=== PATIENT | female | born 1935 | race Caucasian/White ===

== ENCOUNTER → 2019-01-22 | Outpatient (CLI) | payer MEDICARE | END | disposition home or self-care (01) | LOC: LABPAT 12:38 | PROVIDERS: ATTEND Orthopaedic Surgery | DX: Z01.812 Encounter for preprocedural laboratory examination (principal) | CPT/HCPCS: 87070 ==

== ENCOUNTER 2019-03-03 10:45 | Day surgery (SDC) | payer MEDICARE ==
--- NOTE | 2019-03-02 09:39 | HP ---
HISTORY AND PHYSICAL REASON FOR ADMISSION: Surgery scheduled for 03/03/2019 Barbara Wadsworth is an 83-year-old patient who was seen with symptomatic left knee osteoarthritis. After having treatment options discussed, she elected to proceed with left total knee arthroplasty. Consent was obtained. Medical clearance was provided by Miri Puente NP and cardiac clearance was provided by Dr. Sewell. PAST MEDICAL HISTORY: Hypertension, depression. PAST SURGICAL HISTORY: ORIF humerus, sinus surgery, cataract surgery. MEDICATIONS: Amlodipine, metoprolol, triazolam, Xanax. ALLERGIES: SULFA, AMOXICILLIN, DOXYCYCLINE, CLINDAMYCIN. SOCIAL HISTORY: She denies tobacco use. PHYSICAL EXAMINATION: Evaluation of the left knee: Range of motion is -3/4-120. Tenderness along medial joint line. Crepitus along the medial patellofemoral compartments with range of motion. Pain with patellofemoral compression. Ligaments are stable. Hip rotation is without pain. Distal neurovascular exam is intact. RADIOGRAPHS: Radiographs of the left knee revealed severe medial moderate patellofemoral compartment osteoarthritis. IMPRESSION: 1. Left knee osteoarthritis. 2. Hypertension. 3. Depression. PLAN: Left total knee arthroplasty. MMODL / IJN: [id number] /
[~2019-03-03 10:45] MED LIST: ACETAMINOPHEN TAB 500 MG TAB PO ONE; DEXAMETHASONE SOD PHOSPHATE 10 MG/ML 1 ML VIAL IV ONE; HYDROmorphone 0.5 MG/0.5 ML SYRINGE IVP PRN; MELOXICAM 7.5 MG TAB PO ONE; MIDAZOLAM 2 MG/2 ML VIAL IV PRN; ONDANSETRON 4 MG/2 ML VIAL IVP ONE; ROPIVACAINE 246.25 MG, EPINEPHrine 0.5 MG, KETOROLAC 30 MG, cloNIDine HCL/PF 80 MCG, WA... MISCELLANE ONE; TRANEXAMIC ACID 1,000 MG in SODIUM CHLORIDE 0.9% 100 ML IVPB ONE
[2019-03-03] MEDS: LACTATED RINGERS 1,000 ML IV SCH (11:46)
[2019-03-03] MEDS ORDERED: LIDOCAINE 1% 20 ML VIAL (10MG/ML) FOR IV START INTRADERMA ONE (11:47)
[2019-03-03] MEDS: MIDAZOLAM 2 MG/2 ML VIAL IVP ONE ×3 (11:58→14:58)
[2019-03-03] MEDS ORDERED: fentaNYL (PF) 50 MCG/ML 2 ML AMP IVP ONE (12:02)
[2019-03-03] MEDS ORDERED: SODIUM CHLORIDE 0.9% 100 ML BAG ONE (12:22)
[2019-03-03] MEDS ORDERED: MIDAZOLAM 2 MG/2 ML VIAL ONE (12:22)
[2019-03-03] MEDS ORDERED: TRANEXAMIC ACID 1,000 MG/10 ML VIAL ONE (12:22)
[2019-03-03] MEDS ORDERED: fentaNYL (PF) 50 MCG/ML 2 ML AMP ONE (12:22)
[2019-03-03] MEDS ORDERED: PROPOFOL 10 MG/ML 20 ML VIAL IV ONE (12:22)
[2019-03-03] MEDS ORDERED: diphenhydrAMINE 50 MG/ML 1 ML VIAL ONE (12:22)
[2019-03-03] MEDS ORDERED: ePHEDrine SULFATE/0.9% NACL/PF 50 MG/5 ML SYRINGE IV ONE (12:22)
[2019-03-03] MEDS ORDERED: ceFAZolin 3,000 MG in SODIUM CHLORIDE 0.9% IRRIGATIO 3,000 ML IRRIGATION ONE (13:01)
[2019-03-03] MEDS ORDERED: ROPIVACAINE 0.2%-NS ON-Q PUMP 1,090 MG, EMPTY PAIN BALL 1 EACH MISCELLANE PRN (13:07)
--- NOTE | 2019-03-03 13:09 | P.ANPRN ---
Procedure Note - Anesthesia - Nerve Block Performed Left Adductor Canal Infusion Time Out Performed: Yes Date of Procedure: 03/03/19 Procedure Start Time: 11:52 Procedure Stop Time: 12:08 Location of Patient Procedure: PreOp Indication: Acute Post-Operative Pain, Requested by Surgeon Specifically requested for management of pain by DrNeo: Kurtis Leonard Sedation Type: Sedate with meaningful contact maintained Preparation: Sterile Prep Position: Supine Catheter Depth at Skin (cm): 10 Catheter: Indwelling Needle Types: Pajunk Needle Gauge: 18 Ultrasound used to visualize needle placement: Yes Ultrasound used to observe medication spread: Yes Injectate: 0.5% Ropivacaine (see comment for volume) (20 cc) Blood Aspirated: No Pain Paresthesia on Injection Noted: No Resistance on Injection: Normal Image Stored and Saved: Yes Events: Uneventful and Well Tolerated
[2019-03-03] MEDS ORDERED: ONDANSETRON 4 MG/2 ML VIAL IVP PRN (14:16)
[2019-03-03] MEDS ORDERED: HYDROcodone/APAP 5-325MG 1 EACH TAB PO PRN (14:16)
[2019-03-03] MEDS ORDERED: NALOXONE 0.4 MG/ML 1 ML VIAL IV PRN (14:16)
[2019-03-03] MEDS ORDERED: HYDROmorphone 0.5 MG/0.5 ML SYRINGE IVP PRN ×3 (14:16)
--- NOTE | 2019-03-03 14:16 | P.OP ---
Date of Procedure: 03/03/19 Preoperative Diagnosis: Left knee osteoarthritis Postoperative Diagnosis: Left knee osteoarthritis Procedure(s) Performed: Left total knee arthroplasty Implants: 1. Microport evolution size 4 left cemented femur 2. Microport evolution size 4 left cemented tibial baseplate 3. Microport evolution size 4 CS 10 mm polyethylene tibial insert 4. Microport advance 32 mm all polyethylene cemented patella Anesthesia: regional (Adductor canal catheter), local, spinal Surgeon: Kurtis Leonard Logistics Planner #1: Jarred Vaughan Estimated Blood Loss (ml): 50 Pathology: other (Bone) Condition: stable Disposition: PACU Indications for Procedure: 83-year-old patient seen with symptomatic left knee osteoarthritis. After treatment options were discussed, she elected to proceed with total knee arthroplasty. Operative Findings: See description of procedure Description of Procedure: Patient was taken to the operative suite after having an adductor canal catheter placed by the department of anesthesia for postoperative pain management. Patient underwent a spinal anesthetic by the department of anesthesia. Patient was given preoperative IV intake antibiotics and TXA. A well-padded tourniquet was placed about the left lower extremity. The lower extremity was then prepped and draped in the normal sterile orthopedic fashion. The extremity was elevated, a tourniquet was insufflated to 300. A standard anterior incision was made sharply through skin. Dissection was taken down through the subcutaneous soft tissues down to the extensor mechanism. A medial arthrotomy was performed, patella was everted and knee was flexed. There was advanced osteoarthritis noted. I introduced my distal intramedullary femoral drill. I then introduced the distal femoral cutting jig. Giorgi SANTOS secured the cutting jig with 2 pins. I held retractors in position while Giorgi SANTOS performed the distal femoral resection through the guide area we now removed her distal femoral cutting guide. We now placed our 4-in-1 femoral cutting block and positioned and it was secured with 2 pins by Giorgi SANTOS while I held the block in position. The distal femoral finishing was now completed. A proximal tibial cutting guide was positioned. I held the guide in the appropriate position with both hands well Giorgi SANTOS inserted stabilizing pins into the guide. Proximal tibial cut was made. We now placed a trial femoral component into position, along with an appropriate size tibial tray and insert. We now took the knee through range of motion and had full extension good flexion and good overall soft tissue balance noted. The patella was everted and stabilized with 2 towel clips held by Giorgi SANTOS while I performed a flush with patellar quad tendon utilizing a fresh sawblade. We templated the patella, appropriate drill holes were made. An appropriate trial patella was positioned, knee was taken through full range of motion with the patella tracking very nicely. The trial patella was removed. Drill holes were made through the femoral component. All trial components were removed after marking off the appropriate rotation of the tibia. Retractors were now positioned along the proximal tibia. An appropriate keel punch was made with the appropriate size tibial guide by myself on Giorgi SANTOS assisted by holding retractors. At this point appropriate size implants were chosen and opened. The joint was irrigated copiously with pulse lavage mechanical irrigation. The posterior capsule was infiltrated with local analgesic. The wound was irrigated with pulse lavage mechanical irrigation. We mixed antibiotic methylmethacrylate. We placed the knee into flexion. We placed multiple retractors assisted by Giorgi SANTOS to expose the proximal tibia. Once the methyl methacrylate was ready, the tibial component was cemented into place removing any excess methylmethacrylate form by both myself and Giorgi SANTOS. The femoral component was cemented into place removing the removing any excess methylmethacrylate performed by both myself and Giorgi SANTOS. We then inserted the appropriate size polyethylene tibial insert. We made sure that it was locked into position. We took the knee into full extension, and then back in a flexion making sure we had removed any excess methylmethacrylate. The patellar component was then cemented down and secured with clamp. Excess methylmethacrylate removed. We kept the knee in full extension, patellar clamp in position until methylmethacrylate had hardened. Once it had hardened the patellar clamp was removed. The knee was taken through full range of motion. The patella tracked nicely. There was good soft tissue balancing. The tourniquet was now released. Additional hemostasis was achieved via electrocautery. A second gram of TXA was given. The wound again was irrigated with pulse lavage mechanical irrigation. The superficial soft tissues were infiltrated local analgesic. The extensor mechanism was repaired with Vicryl. We checked the repair with range of motion and it was stable. The subcutaneous soft tissues were repaired with Vicryl in layers. The skin was approximated with pernio/Dermabond. Sterile dressings were applied followed by loose web roll and Kobe bandage. The patient was transferred to a bed, and taken to recovery in stable and satisfactory condition. Giorgi SANTOS assisted with this complex procedure.
--- NOTE | 2019-03-03 15:01 | XR ---
EXAMINATION TYPE: XR knee limited LT DATE OF EXAM: 03/03/2019 CLINICAL HISTORY: Left knee pain and arthritis status post total knee replacement. TECHNIQUE: Portable AP and crosstable lateral views of the left knee are obtained immediately postop eratively. COMPARISON: None FINDINGS: Metallic hardware from total left knee arthroplasty is seen and appears satisfactory in al ignment and position. There is evidence of recent surgery with diffuse subcutaneous gas and soft tis moisés swelling noted. IMPRESSION: METALLIC HARDWARE FROM TOTAL LEFT KNEE ARTHROPLASTY IS SATISFACTORY IN ALIGNMENT.
[2019-03-03 15:50] LABS: Glucose,Whole Blood 128 mg/dL (75-99)
[2019-03-03] MEDS ORDERED: PROMETHAZINE INJ 25 MG/ML 1 ML VIAL IVPB ONE (16:11)
[2019-03-03 17:18] VITALS: BMI 27.7
[2019-03-03] MEDS ORDERED: FLUTICASONE 50MCG/SPRAY NASAL 16GM EA NOSTRIL PRN (17:22)
[2019-03-03] MEDS ORDERED: FAMOTIDINE 20 MG TAB PO PRN (17:22)
[2019-03-03] MEDS ORDERED: TEMAZEPAM 15 MG CAP PO PRN (17:22)
[2019-03-03] MEDS: ALPRAZolam 0.5 MG TAB PO PRN (20:14)
[2019-03-03] MEDS: HYDROcodone/APAP 5-325MG 1 EACH TAB PO PRN (20:22)
[2019-03-03] MEDS: SODIUM CHLORIDE 0.9% 1,000 ML IV SCH (20:24)
[2019-03-03] MEDS ORDERED: METOPROLOL SUCCINATE (ER) 25 MG TAB.ER.24H PO SCH (21:00)
[2019-03-03] MEDS ORDERED: amLODIPine 5 MG TAB PO SCH (21:00)
[2019-03-03] MEDS ORDERED: SENNOSIDES-DOCUSATE SODIUM 1 EACH TAB PO SCH (21:00)
[2019-03-03] MEDS ORDERED: DOXEPIN 25 MG CAP PO SCH (21:00)
[2019-03-03] MEDS ORDERED: ATORVASTATIN 20 MG TAB PO SCH (21:00)
[2019-03-04] MEDS ORDERED: ENOXAPARIN 30 MG/0.3 ML SYRINGE SQ SCH (03:00)
[2019-03-04] MEDS ORDERED: guaiFENesin-Coden 100-10MG/5ML 10 ML CUP PO PRN (03:32)
[2019-03-04] MEDS ORDERED: guaiFENesin SYRUP 100MG/5ML 200 MG/10 ML CUP PO PRN (04:03)
[2019-03-04] MEDS: HYDROcodone/APAP 5-325MG 1 EACH TAB PO PRN (05:33)
[2019-03-04] MEDS: LACTATED RINGERS 1,000 ML IV SCH (06:13)
[2019-03-04] MEDS: ALPRAZolam 0.5 MG TAB PO PRN (06:20)
[2019-03-04 08:05] VITALS: BP 158/80; PULSE 91; RESP 18; TEMP 97.7
[2019-03-04 08:16] LABS: Basophils % (A) 0 %; Eosinophils % (A) 0 %; HGB 11.1 gm/dL (11.4-16.0); Lymphocytes # (A) 0.7 k/uL (1.0-4.8); Lymphocytes % (A) 4 %; MCH 31.8 pg (25.0-35.0); MCHC 31.8 g/dL (31.0-37.0); Mean Platelet Volume 6.3; Monocytes # (A) 0.7 k/uL (0-1.0); Monocytes % (A) 4 %; Neutrophils # (A) 14.2 k/uL (1.3-7.7); Neutrophils % (A) 90 %; Platelet Count 283 k/uL (150-450); RDW 12.5 % (11.5-15.5); WBC 15.7 k/uL (3.8-10.6)
[2019-03-04] MEDS: SODIUM CHLORIDE 0.9% 1,000 ML IV SCH (08:17)
[2019-03-04] MEDS ORDERED: MELOXICAM 7.5 MG TAB PO SCH (09:00)
[2019-03-04] MEDS ORDERED: ASPIRIN 81 MG PO SCH (09:00)
[2019-03-04] MEDS ORDERED: LORATADINE 10 MG TAB PO SCH (09:00)
--- NOTE | 2019-03-04 09:08 | P.CONS ---
History of Present Illness - Reason for Consult Consult date: 03/04/19 medical mangament Requesting physician: Kurtis Leonard - History of Present Illness This is an 83-year-old female patient presented for an elective left knee arthroplasty with Dr. Leonard. Patient reports she's had ostial arthritis left knee with declining function over the past year patient had try other measures without success. Patient is currently postop day 1 estimated blood loss 50 MLS. Patient does have past medical history of GERD, hypertension, osteoarthritis, left arm fracture, frequent PVCs and cardiac clearance prior to surgery. Patient also reports that she has high anxiety especially in regards to hospitalizations. Today patient is currently resting comfortably in chair. Daughter at bedside. Patient reports that she's had increased cough and congestion throughout the night. Patient denies any nausea vomiting or diarrhea. Patient denies any chest pain. Patient denies shortness of breath. Patient denies any urinary burning or frequency. Patient has been working with physical therapy and anticipating discharge home with home healthcare today. Review of Systems Please refer to HPI otherwise unremarkable Past Medical History Past Medical History: GERD/Reflux, Hypertension, Musculoskeletal Disorder, Osteoarthritis (OA) Additional Past Medical History / Comment(s): Hx lt upper arm fx. Edema BLE occ. Freq PVC's. Tricuspid, Mitral valve regurg per Dr Sewell, hypoglycemia History of Any Multi-Drug Resistant Organisms: None Reported Past Surgical History: Breast Surgery, Orthopedic Surgery Additional Past Surgical History / Comment(s): D&C. Rt breast exc fibrous tumor. Sinus surg. ORIF lt upper arm. Nash Cataracts. Past Anesthesia/Blood Transfusion Reactions: Postoperative Nausea & Vomiting (PONV) Additional Past Anesthesia/Blood Transfusion Reaction / Comm: no hx blood transfusion Past Psychological History: Anxiety Additional Psychological History / Comment(s): very anxious, "phobia regarding hospitals" Smoking Status: Never smoker Past Alcohol Use History: None Reported Past Drug Use History: None Reported - Past Family History Mother Family Medical History: Cancer Medications and Allergies Home Medications Medication Instructions Recorded Confirmed Type ALPRAZolam [Xanax] 0.5 mg PO TID PRN 02/24/19 03/03/19 History Acetaminophen [Tylenol Arthritis] 650 mg PO Q8H PRN 02/24/19 03/03/19 History Aspirin [Adult Low Dose Aspirin EC] 81 mg PO DAILY 02/24/19 03/03/19 History Atorvastatin [Lipitor] 20 mg PO HS 02/24/19 03/03/19 History Doxepin HCl [SINEquan] 75 mg PO HS 02/24/19 03/03/19 History Loratadine [Claritin] 10 mg PO DAILY 02/24/19 03/03/19 History Meloxicam [Mobic] 7.5 mg PO DAILY PRN 02/24/19 03/03/19 History Metoprolol Succinate (ER) [Toprol 25 mg PO HS 02/24/19 03/03/19 History Xl] Mometasone Furoate [Nasonex Nasal 1 - 2 spray EA NOSTRIL DAILY PRN 02/24/19 03/03/19 History Myrtle] Ranitidine HCl [Zantac] 300 mg PO DAILY PRN 02/24/19 03/03/19 History Triazolam [Halcion] 0.25 mg PO HS PRN 02/24/19 03/03/19 History amLODIPine [Norvasc] 5 mg PO HS 02/24/19 03/03/19 History Allergies Allergy/AdvReac Type Severity Reaction Status Date / Time codeine Allergy Vomiting Verified 03/04/19 03:59 Penicillins Allergy Swelling, Verified 02/24/19 12:47 Lumps on skin Sulfa (Sulfonamide Allergy Swelling, Verified 02/24/19 12:47 Antibiotics) Lumps on skin Physical Exam Vitals: Vital Signs Temp Pulse Pulse Pulse Pulse Resp BP 03/04/19 07:00 97.7 F 91 18 158/80 03/04/19 01:52 98.3 F 90 17 118/54 03/03/19 20:08 98.0 F 52 L 18 152/95 03/03/19 16:01 89 18 151/65 03/03/19 15:55 97.5 F L 60 16 124/72 03/03/19 15:46 87 20 160/71 03/03/19 15:30 89 18 149/80 03/03/19 15:15 83 18 159/67 03/03/19 15:00 77 16 144/64 03/03/19 14:45 75 18 152/71 03/03/19 14:25 97.3 F L 85 16 155/73 03/03/19 11:35 97.9 F 104 H 16 159/92 Pulse Ox 03/04/19 07:00 93 L 03/04/19 01:52 93 L 03/03/19 20:08 92 L 03/03/19 16:01 96 03/03/19 15:55 94 L 03/03/19 15:46 97 03/03/19 15:30 97 03/03/19 15:15 97 03/03/19 15:00 98 03/03/19 14:45 97 03/03/19 14:25 93 L 03/03/19 11:35 95 Intake and Output 03/03/19 03/04/19 03/04/19 22:59 06:59 14:59 Intake Total 330 Balance 330 Intake: IV 150 Oral 180 Other: Voiding Method Bedpan Toilet # Voids 0 1 Head normocephalic Neck supple Lungs clear to auscultation bilaterally no wheezing or crackles Heart regular rate and rhythm S1-S2, no rub or gallop Abdomen is soft nontender nondistended positive bowel sounds no hepatosplenomegaly Extremities no edema. right knee Dressing is clean dry and intact Neuro alert and orientated to 3 Results CBC & Chem 7: 03/04/19 06:37 Labs: Abnormal Lab Results - Last 24 Hours (Table) 03/03/19 03/04/19 Range/Units 15:49 06:37 WBC 15.7 H (3.8-10.6) k/uL RBC 3.50 L (3.80-5.40) m/uL Hgb 11.1 L (11.4-16.0) gm/dL Neutrophils # 14.2 H (1.3-7.7) k/uL Lymphocytes # 0.7 L (1.0-4.8) k/uL POC Glucose (mg/dL) 128 H (75-99) mg/dL Assessment and Plan Assessment: 1. Right knee osteoarthritis status post total right knee arthroplasty with Dr. Leonard. Patient is currently postop day 1. Lovenox for DVT prophylaxis per orthopedic services pain meds per orthopedics 2. Increased coughing congestion. Will order chest x-ray to further investigate. Robitussin added 3. Leukocytosis. This could be secondary to Decadron the patient received intraoperative. Patient is having increased congestion will order chest x-ray to rule out pneumonia. UA to rule out UTI 4. History of GERD 5. History of essential hypertension 6. History of left arm fracture 7. History of anxiety in regards hospitalization. Maintained on Xanax DVT prophylaxis Lovenox. GI prophylaxis Pepcid Thank you for this consultation we will follow patient closely throughout stay Anticipate possible discharge home today or tomorrow per orthopedic services Time with Patient: Greater than 30 (Greater than 60% of the total time spent in counseling and coordination of care. I performed an examination of the patient and discussed their management with the Nurse Practitioner. I have reviewed the Nurse Practitioner's notes and agree with the documented findings and plan of care)
[2019-03-04 09:15] LABS: ALT 22 U/L (9-52); AST 18 U/L (14-36); African American GFR (CKD) >90 (>60 ml/min/1.73 sqM); Albumin 3.3 g/dL (3.5-5.0); Alkaline Phosphatase 60 U/L (38-126); Anion Gap 8 mmol/L; Blood Urea Nitrogen 17 mg/dL (7-17); Calcium 8.9 mg/dL (8.4-10.2); Carbon Dioxide 25 mmol/L (22-30); Chloride 107 mmol/L (98-107); Glucose 114 mg/dL (74-99); Sodium 140 mmol/L (137-145); Total Bilirubin 0.3 mg/dL (0.2-1.3); Total Protein 5.6 g/dL (6.3-8.2)
[2019-03-04 10:50] LABS: Appearance,Urine Clear (Clear); Bilirubin,Urine Negative (Negative); Blood,Urine Negative (Negative); Color,Urine Yellow; Glucose,Urine (UA) Negative (Negative); Ketones,Urine Negative (Negative); Leukocyte Esterase,Urine Negative (Negative); Nitrite,Urine Negative (Negative); PH, Urine 5.5 (5.0-8.0); Protein,Urine Negative (Negative); Specific Gravity,Urine 1.021 (1.001-1.035); Urobilinogen,Urine <2.0 mg/dL (<2.0)
--- NOTE | 2019-03-04 11:27 | P.PN ---
Progress Note - Text Anesthesia POD 1657. Patient is status post left TKR under spinal anesthesia with a left adductor canal catheter placed for postoperative pain relief. With ropivacaine 0.2% running at 8 cc's per hour, the patient's VAS is (2, 4). Catheter site is clean dry and intact.
--- NOTE | 2019-03-04 12:58 | XR ---
EXAMINATION TYPE: XR chest 2V DATE OF EXAM: 03/04/2019 COMPARISON: NONE HISTORY: Increasing cough and congestion TECHNIQUE: Frontal and lateral views of the chest are obtained. FINDINGS: There is slight right hemidiaphragm elevation that may be congenital. Cardia mediastinal s ilhouette is upper limits of normal in size. Main pulmonary arteries appear engorged, which could cor relate with pulmonary arterial hypertension. Upper mediastinum is prominent and may be slightly relat ed to patient rotation, chronicity unknown. Diffuse osseous demineralization is present with mild deg enerative changes of the thoracic spine. No focal consolidation, pleural effusion or pneumothorax. IMPRESSION: 1. No acute pulmonary process with no focal consolidation, pleural effusion or pneumothorax. 2. Cardiomediastinal silhouette is prominent as discussed on the dictation of 10/04/2010, however no im ages are available for direct comparison of size of the aorta.
--- NOTE | 2019-03-04 13:10 | P.PN ---
Subjective Progress Note Date: 03/04/19 Principal diagnosis: status post left total knee arthroplasty Patient evaluated at bedside today, she's doing very well. She has multiple family members at bedside. She's ambulate well therapy. Her pain is well- controlled. Objective - Vital Signs Vital signs: Vital Signs Temp 97.7 F 03/04/19 07:00 Pulse 91 03/04/19 07:00 Resp 18 03/04/19 07:00 BP 158/80 03/04/19 07:00 Pulse Ox 93 L 03/04/19 07:00 Intake & Output 03/03/19 03/04/19 03/04/19 18:59 06:59 18:59 Intake Total 1231 Output Total 50 Balance 1181 Intake: IV 1051 Oral 180 Output: Estimated Blood Loss 50 Other: Voiding Method Bedpan Toilet # Voids 1 - Exam Left lower extremity: Incision is clean, dry, and intact. The exofin fusion tape is in good condition. There is minimal soft tissue swelling and ecchymosis surrounding the medial and lateral aspects of the incision. Calf is soft, no tenderness with palpation. Plantar flexion, dorsiflexion, EHL, FHL are intact. Sensory exam to light touch throughout the extremity is intact, dorsal pedis pulses 2+. - Labs CBC & Chem 7: 03/04/19 06:37 03/04/19 06:37 Labs: Abnormal Lab Results - Last 24 Hours (Table) 03/03/19 03/04/19 03/04/19 Range/Units 15:49 06:37 06:37 WBC 15.7 H (3.8-10.6) k/uL RBC 3.50 L (3.80-5.40) m/uL Hgb 11.1 L (11.4-16.0) gm/dL Neutrophils # 14.2 H (1.3-7.7) k/uL Lymphocytes # 0.7 L (1.0-4.8) k/uL Glucose 114 H (74-99) mg/dL POC Glucose (mg/dL) 128 H (75-99) mg/dL Total Protein 5.6 L (6.3-8.2) g/dL Albumin 3.3 L (3.5-5.0) g/dL Assessment and Plan Plan: Assessment: Postoperative day #1 status post left total knee arthroplasty Plan: Pain control, plan for discharge on oral medication GI and DVT prophylaxis, aspirin 81 mg twice a day Wound care instructions discussed Home physical therapy and nursing after discharge Medical recommendations Discharge home today Time with Patient: Less than 30
--- NOTE | 2019-03-04 13:13 | P.DS ---
Providers Date of admission: 03/03/2019 Expected date of discharge: 03/04/19 Attending physician: Kurtis Leonard Consults: 03/03/19 14:16 Consult Physician Routine Consulting Provider: Gwendolyn Bhakta Consult Reason/Comments: Medical management Do you want consulting provider notified?: Yes Primary care physician: Jadyn Chiu [facility] Course: Date of admission: 03/03/2019 Date of discharge: 03/04/2019 Admission diagnosis: Status post left total knee arthroplasty Discharge diagnosis: Same Attending physician: Dr. Leonard Surgical procedures: Left total knee arthroplasty Brief history: Patient is a 83-year-old female with a history of progressive primary left knee osteoarthritis. At this point patient has failed conservative treatment measures and has opted to proceed with a elective left total knee arthroplasty. Hospital course: Details of patient's surgery can be found in operative report. Patient tolerated the procedure well and was subsequently transported to orthopedic floor. Patient's orthopeidc and medical care was provided daily. Patient had daily laboratory tests performed for evaluation of overall blood counts. Patient had daily physical therapy to include strengthening range of motion as well as education with walker ambulation. Patient had daily CPM usage as part of their physical therapy program. Patient was treated with Lovenox for their postoperative DVT prophylaxis during their inpatient stay. Patient was noted to have a relatively uneventful postoperative course. Patient reported satisfactory pain control with oral pain medications by postoperative day 0. Patient showed satisfactory progress with physical therapy. Patient moved steadily through the program and had no difficulty meeting the goals by postop erative day 1. Given patient's otherwise satisfactory course and having met physical therapy goals, plan is to discharge patient home on postoperative day 1. Discharge condition/disposition: Patient will be discharged home in stable condition. Discharge medications: Instructions are given on resumption of patient's normal daily medications per primary care recommendation, in addition patient will be prescribed [place] 5 mg/325 mg, Colace 100 mg. Discharge instructions: 1. Wound care and infection precautions, keep incision dry and covered while showering, no lotions, creams, moisturizers. No soaking, tubs, pools, hottubs. Do not scrub over the incision. 2. Weight-bear as tolerated with walker / cane until follow-up. 3. Ice and elevate when necessary. Do not exceed 20 minutes per hour with ice pack. 4. Utilize compression sleeve until seen at first follow up appointment. 5. Visiting nursing care. 6. Home physical therapy including home CPM]. 7. Pain meds and anticoagulants per prescription. 8. Pain medication has potential to cause constipation. Increase oral fluid and fiber intake. Contact primary care provider if you have not had a bowel movement within 48 hours after discharge 9. No anti-inflammatory medication until discussed at first post operative visit, this including Motrin, Aleve, Mobic, Diclofenac. 10. Follow up in office at 2 weeks postop with Giorgi Vaughan PA-C 11. Follow up with your primary care doctor 7-10 days after discharge. 12. Contact [facility] with any questions, . Procedures: Left total knee arthroplasty Plan - Discharge Summary Discharge Rx Participant: Yes New Discharge Prescriptions: New Aspirin [Adult Low Dose Aspirin EC] 81 mg PO BID #60 tablet. Docusate [Colace] 100 mg PO DAILY #30 capsule Hydrocodone/Acetaminophen [[place] 5-325] 1 - 2 each PO Q6HR PRN #40 tab PRN Reason: Pain No Action Meloxicam [Mobic] 7.5 mg PO DAILY PRN PRN Reason: Pain Atorvastatin [Lipitor] 20 mg PO HS Mometasone Furoate [Nasonex Nasal Page] 1 - 2 spray EA NOSTRIL DAILY PRN PRN Reason: sinus sx amLODIPine [Norvasc] 5 mg PO HS Loratadine [Claritin] 10 mg PO DAILY Metoprolol Succinate (ER) [Toprol Xl] 25 mg PO HS Doxepin HCl [SINEquan] 75 mg PO HS Ranitidine HCl [Zantac] 300 mg PO DAILY PRN PRN Reason: Heartburn Triazolam [Halcion] 0.25 mg PO HS PRN PRN Reason: Insomnia ALPRAZolam [Xanax] 0.5 mg PO TID PRN PRN Reason: Anxiety Acetaminophen [Tylenol Arthritis] 650 mg PO Q8H PRN PRN Reason: Pain Discharge Medication List ALPRAZolam [Xanax] 0.5 mg PO TID PRN 02/24/19 [History] Acetaminophen [Tylenol Arthritis] 650 mg PO Q8H PRN 02/24/19 [History] Atorvastatin [Lipitor] 20 mg PO HS 02/24/19 [History] Doxepin HCl [SINEquan] 75 mg PO HS 02/24/19 [History] Loratadine [Claritin] 10 mg PO DAILY 02/24/19 [History] Meloxicam [Mobic] 7.5 mg PO DAILY PRN 02/24/19 [History] Metoprolol Succinate (ER) [Toprol Xl] 25 mg PO HS 02/24/19 [History] Mometasone Furoate [Nasonex Nasal Page] 1 - 2 spray EA NOSTRIL DAILY PRN 02/24/19 [History] Ranitidine HCl [Zantac] 300 mg PO DAILY PRN 02/24/19 [History] Triazolam [Halcion] 0.25 mg PO HS PRN 02/24/19 [History] amLODIPine [Norvasc] 5 mg PO HS 02/24/19 [History] Aspirin [Adult Low Dose Aspirin EC] 81 mg PO BID #60 tablet. 03/04/19 [Rx] Docusate [Colace] 100 mg PO DAILY #30 capsule 03/04/19 [Rx] Hydrocodone/Acetaminophen [[place] 5-325] 1 - 2 each PO Q6HR PRN #40 tab 03/04/19 [Rx] Follow up Appointment(s)/Referral(s): Jarred Vaughan PAC [PHYSICIAN MECHANIC/WELDER] - 03/19/19 1:50 pm Jadyn Chiu MD [Primary Care Provider] - 03/11/19 11:00 am [facility] Visiting Nurse, [NON-STAFF] - Activity/Diet/Wound Care/Special Instructions: Orthopedic Discharge Instructions: 1. Wound care and infection precautions, keep incision dry and covered while showering, no lotions, creams, moisturizers. No soaking, pools, hot tubs. Do not scrub over incision. 2. Weight-bear as tolerated with walker / cane until follow-up. 3. Ice and elevate when necessary. Do not exceed 20 minutes per hour with ice pack. 4. Utilize compression sleeve until seen at first follow up appointment. 5. Pain meds and anticoagulants per prescription. 6. Pain medication has potential to cause constipation. Increase oral fluid and fiber intake. Contact primary care provider if you have not had a bowel movement within 48 hours after discharge. 7. No anti-inflammatory medication until discussed at first post operative visit, this including Motrin, Aleve, Mobic, Diclofenac. 8. Follow up in office at 2 weeks postop with Giorgi Vaughan PA-C 9. Follow up with your primary care doctor 7-10 days after discharge. 10. Contact [facility] with any questions, [phone]. 11. *Please call [facility] once home to arrange delivery of Continuous Passive Motion (CPM) machine: [phone] 12. [facility] will deliver walker to bedside before discharge. 13. [facility] will call you to set up first visit which should occur about 24 hours after you get home. A nurse will come out at least once a week for about an hour. Physical Therapy will come out 3 times per week for an hour at a time. 14. When you go to your follow up appointment, you will be given a prescription to start outpatient physical therapy. Call outpatient physical therapy facility and arrange visits per the prescription. Discharge Disposition: HOME WITH HOME HEALTH SERVICES
== END 2019-03-04 14:15 | disposition home health service (06) ==
LOC: OR 10:45 → 4SSUR 16:14 → OR 03-04 14:15
PROVIDERS: ATTEND Orthopaedic Surgery
DX: M17.12 Unilateral primary osteoarthritis, left knee (principal); D72.829 Elevated white blood cell count, unspecified; F41.9 Anxiety disorder, unspecified; I10 Essential (primary) hypertension; I49.3 Ventricular premature depolarization; K21.9 Gastro-esophageal reflux disease without esophagitis; Z79.82 Long term (current) use of aspirin; Z79.899 Other long term (current) drug therapy; Z88.0 Allergy status to penicillin; Z88.2 Allergy status to sulfonamides; F32.9 Major depressive disorder, single episode, unspecified; Z88.1 Allergy status to other antibiotic agents; Z98.42 Cataract extraction status, left eye; Z98.41 Cataract extraction status, right eye; Z80.9 Family history of malignant neoplasm, unspecified; Z79.1 Long term (current) use of non-steroidal anti-inflammatories (NSAID); Z79.51 Long term (current) use of inhaled steroids; Z88.5 Allergy status to narcotic agent; T38.0X5A Adverse effect of glucocorticoids and synthetic analogues, initial encounter; R05 Cough
CPT/HCPCS: 97161; 64448; 76942; 80053; 85025; 81003; 88300; 73560; 71046; 27447; C1776; C1713; J2250; J0171; J1200; J1100; J2550; J0690 ×3; J2405; J3010; J1885; J1650; J2795 ×2; J2704; J0735

== ENCOUNTER → 2019-06-06 | Outpatient (CLI) | payer MEDICARE ==
--- NOTE | 2019-06-06 12:27 | XR ---
Right knee HISTORY: Right knee pain 3 views of the right knee Marginal spurring and joint space loss is present especially in the medial compartment. Suprapatellar increased density suggests joint effusion. Bone mineralization is reduced. Alignment is maintained. Dense vascular calcifications are noted incidentally. Spurring and joint space loss also present at t he patellofemoral joint. No fracture or dislocation. IMPRESSION: Osteoarthritis, osteopenia, atherosclerotic vascular disease.
== END | disposition home or self-care (01) ==
LOC: RADXRYALE 10:39
PROVIDERS: ATTEND Family Medicine
DX: M17.11 Unilateral primary osteoarthritis, right knee (principal); M85.861 Other specified disorders of bone density and structure, right lower leg; I70.90 Unspecified atherosclerosis

== ENCOUNTER → 2020-10-19 | Outpatient (CLI) | payer MEDICARE ==
--- NOTE | 2020-10-19 10:53 | XR ---
Right knee HISTORY: Right knee pain Reviews of the right knee, correlation to prior exam 06/06/2019 There are dense vascular calcifications. Bone mineralization is reduced. There is joint space loss at the patellofemoral joint, medial compartment, there is associated marginal spurring. Difficult to ex clude a joint effusion. Alignment is stable. IMPRESSION: Osteoarthritis similar to prior exam. Osteopenia. There may be joint effusion.
== END | disposition home or self-care (01) ==
LOC: RADXRYALE 10:25
PROVIDERS: ATTEND Family Medicine
DX: M17.11 Unilateral primary osteoarthritis, right knee (principal); M85.861 Other specified disorders of bone density and structure, right lower leg